=== PATIENT | male | born 1990 | race Caucasian/White ===

== ENCOUNTER 2021-05-01 20:36 | Emergency (ER) | payer OTHER ==
[~2021-05-01] VITALS: Ht 180.3 cm; Wt 99.8 kg
[2021-05-01 20:41] VITALS: BP 144/78
[2021-05-01 22:04] VITALS: BP 144/78
--- NOTE | 2021-05-01 22:04 | NUR ---
PT OK TO BOOK. SEEN BY DR VAIL NO NURSING INTERVENTION REQUIRED
== END 2021-05-01 22:04 ==
LOC: MED 20:36
DX: M25.531 Pain in right wrist (principal); Z02.89 Encounter for other administrative examinations; V89.2XXA Person injured in unspecified motor-vehicle accident, traffic, initial encounter; Y93.89 Activity, other specified; Y92.89 Other specified places as the place of occurrence of the external cause; Y99.8 Other external cause status
CPT/HCPCS: 99283